=== PATIENT | female | born 1975 | race Caucasian/White ===

== ENCOUNTER 2022-02-21 11:35 | Emergency (ER) | payer BC, SELFPAY ==
[2022-02-21] MEDS ORDERED: HYDROCODONE/APAP 7.5/325 MG TAB ONE (12:30)
--- NOTE | 2022-02-21 13:36 | RAD REPORT ---
EXAM DESCRIPTION: RAD - Lumbar Spine 3 Views - 02/21/2022 1:19 pm CLINICAL HISTORY: PAINafter fall COMPARISON: C Spine Ap/Lat dated 02/21/2022; Elbow Left 3 View dated 02/21/2022 FINDINGS: A three-view lumbar spine examination was performed. Lumbar bodies are normal in height and alignment. No fracture or acute bony process seen. No disc spa ce narrowing. No pars defects identified. SI joints are normal. No significant facet degenerative yesika nge. IMPRESSION: Negative Lumbar Spine examination for acute or significant finding.
--- NOTE | 2022-02-21 13:42 | RAD REPORT ---
EXAM DESCRIPTION: RAD - Elbow Left 3 View - 02/21/2022 1:18 pm CLINICAL HISTORY: Left elbow pain status post trauma FINDINGS: No fracture or dislocation is seen.
--- NOTE | 2022-02-21 13:44 | RAD REPORT ---
EXAM DESCRIPTION: RAD - C Spine Ap/Lat - 02/21/2022 1:19 pm CLINICAL HISTORY: Neck pain FINDINGS: No fracture or dislocation is seen. Mild spondylosis involves mid and distal cervical spine
--- NOTE | 2022-02-21 14:25 | ER ---
Nurse's Notes [facility] Name: Dara Gallego Age: 46 yrs Sex: Female : 1975 Arrival Date: 02/21/2022 Time: 11:38 Bed 9 Private MD: Diagnosis: Other sprain of left elbow Presentation: 02/21 12:16 Chief complaint: Patient states: fell about an hour ago, states was walking and [facility], states landed on back and Left arm and hit back of head. Denies LOC. Coronavirus screen: Vaccine status: Patient reports being unvaccinated. Client denies travel out of the [place] in the last 14 days. Ebola Screen: Patient denies exposure to infectious person. Patient denies travel to an Ebola-affected area in the 21 days before illness onset. Initial Sepsis Screen: Does the patient meet any 2 criteria? No. Patient's initial sepsis screen is negative. Does the patient have a suspected source of infection? No. Patient's initial sepsis screen is negative. Risk Assessment: Do you want to hurt yourself or someone else? Patient reports no desire to harm self or others. Onset of symptoms was February 21, 2022. 12:16 Method Of Arrival: Ambulatory vg1 12:16 Acuity: NEREYDA 3 vg1 14:50 Care prior to arrival: None. Mechanism of Injury: No Mechanism of Injury. Trauma event ld1 details: Injury occurred in the [facility]. Triage Assessment: 12:19 General: Appears uncomfortable, Behavior is calm, cooperative. Pain: Complains of pain vg1 in left arm Pain currently is 8 out of 10 on a pain scale. Musculoskeletal: Reports numbness in left arm. 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 - Social history:: Smoking status: Patient reports the use of cigarette tobacco products, smokes one-half pack cigarettes per day. - Immunization history: Last tetanus immunization: - up to date. Screenin:21 Abuse screen: Denies threats or abuse. Denies injuries from another. Nutritional eh3 screening: No deficits noted. Tuberculosis screening: No symptoms or risk factors identified. Fall Risk None identified. Primary Survey: 14:47 NO uncontrolled hemorrhage observed. A: The client is awake and alert. The airway is ld1 patent. Breathing/Chest: Spontaneous respiratory effort, equal unlabored respirations, breath sounds clear bilaterally, regular pattern, symmetrical chest rise and fall. Circulation: No external hemorrhage present. Regular and strong central pulse, skin warm/dry/normal color. Disability Client is alert. Exposure/Environment: All clothing and personal items were removed. Forensic evidence collection is not deemed to be indicated at this time. Items placed in patient belonging bag. Reassessment Alertness and Airway: Awake and alert. The airway is patent. Breathing: Spontaneous respiratory effort, equal unlabored respirations, breath sounds clear bilaterally, regular pattern with symmetrical chest rise and fall. Circulation: No external hemorrhage noted. Regular and strong central pulse, skin warm/dry/normal color. Disability: Alert. Assessment: 14:19 Reassessment: Patient states symptoms have improved. Pain: Pain currently is 5 out of eh3 10 on a pain scale. Vital Signs: 12:16 BP 139 / 87; Pulse 77; Resp 16; Temp 97.9(O); Pulse Ox 98% on R/A; Weight 99.79 kg; vg1 Height 5 ft. 6 in. (167.64 cm); Pain 8/10; 14:20 BP 134 / 83; Pulse 69; Resp 16; Pulse Ox 96% on R/A; Pain 5/10; eh3 12:16 Body Mass Index 35.51 (99.79 kg, 167.64 cm) vg1 Wyckoff Coma Score: 14:47 Eye Response: spontaneous(4). Verbal Response: oriented(5). Motor Response: obeys ld1 commands(6). Total: 15. Trauma Score (Adult): 14:47 Eye Response: spontaneous(1); Verbal Response: oriented(1); Motor Response: obeys ld1 commands(2); Systolic BP: > 89 mm Hg(4); Respiratory Rate: 10 to 29 per min(4); Wyckoff Score: 15; Trauma Score: 12 ED Course: 11:38 Patient arrived in ED. mr 11:40 Margo Rosa FNP [facility] jh7 11:40 Jaden Ruiz DO is Attending Physician. jh7 12:19 Triage completed. vg1 12:19 Arm band placed on. vg1 13:16 XRAY Elbow LEFT 3 view In Process Unspecified. EDMS 13:16 XRAY C Spine Ap/lat In Process Unspecified. EDMS 13:16 Lumbar Spine (3 Views) XRAY In Process Unspecified. EDMS 14:11 Chantelle Thomas, RN is Primary Nurse. ld1 14:47 Patient has correct armband on for positive identification. Placed in gown. Bed in low ld1 position. Call light in reach. Side rails up X2. Patient maintains SpO2 saturation greater than 95% on room air. 14:47 Patient maintains SpO2 saturation greater than 95% on room air. ld1 14:49 No provider procedures requiring assistance completed. Patient did not have IV access ld1 during this emergency room visit. 14:50 Thermoregulation: warm blanket given to patient. ld1 Administered Medications: 12:25 Drug: [place] (HYDROcodone-acetaminophen) (7.5 mg-325 mg) 1 tabs Route: PO; vg1 14:19 Follow up: Response: No adverse reaction; Marked relief of symptoms eh3 14:39 Drug: Ketorolac 60 mg Route: IM; Site: right deltoid; 3 14:46 Follow up: Response: No adverse reaction eh3 Medication: 14:50 VIS not applicable for this client. ld1 Intake: 14:47 PO: 150ml (Water); Total: 150ml. ld1 Outcome: 14:25 Discharge ordered by . [facility] 14:46 Discharged to home ambulatory. 3 14:46 Condition: stable 14:46 Discharge instructions given to patient, Instructed on discharge instructions, follow up and referral plans. medication usage, Demonstrated understanding of instructions, follow-up care, medications. 14:47 Patient's length of stay was not longer than 2 hours. ld1 14:53 Discharge ordered by . [facility] 14:57 Patient left the ED. ld1 Signatures: Dispatcher [employer] EDCT Lydia Smalls Cathleen Metz RN RN 1 Chantelle Thomas, JASMYN RN ld1 Lizeth Graff eh3 Margo Rosa FNP MANAGER STORE jh7
--- NOTE | 2022-02-21 14:25 | EDPHYS ---
Physician Documentation [facility] Name: Dara Gallego Age: 46 yrs Sex: Female : 1975 Arrival Date: 02/21/2022 Time: 11:38 Bed 9 Private MD: ED Physician Jaden Ruiz HPI: 02/21 12:25 This 46 yrs old Female presents to ER via Ambulatory with complaints of Fall Injury. 7 12:25 Details of fall: The patient fell from an upright position, while standing. Onset: The jh7 symptoms/episode began/occurred acutely. Patient reports that she was carrying groceries and suddenly slipped on a pile of sugar. Denies any head injury but states that she has severe pain in her left elbow, mild neck pain, and lower back pain. Denies LOC. No medical problems.. 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 - Social history:: Smoking status: Patient reports the use of cigarette tobacco products, smokes one-half pack cigarettes per day. - Immunization history: Last tetanus immunization: - up to date. ROS: 12:25 Constitutional: Negative for fever, chills, and weight loss, Eyes: Negative for injury, jh7 pain, redness, and discharge, ENT: Negative for injury, pain, and discharge, Cardiovascular: Negative for chest pain, palpitations, and edema, Respiratory: Negative for shortness of breath, cough, wheezing, and pleuritic chest pain, Abdomen/GI: Negative for abdominal pain, nausea, vomiting, diarrhea, and constipation, Skin: Negative for injury, rash, and discoloration, Neuro: Negative for headache, weakness, numbness, tingling, and seizure. 12:25 Neck: Positive for pain with movement. 12:25 Back: Positive for pain at rest, Negative for decreased range of motion. 12:25 MS/extremity: Positive for injury or acute deformity, decreased range of motion, pain, swelling. 12:25 All other systems are negative. Exam: 12:25 Constitutional: This is a well developed, well nourished patient who is awake, alert, jh7 and in no acute distress. ENT: Nares patent. No nasal discharge, no septal abnormalities noted. Tympanic membranes are normal and external auditory canals are clear. Oropharynx with no redness, swelling, or masses, exudates, or evidence of obstruction, uvula midline. Mucous membranes moist. Cardiovascular: Regular rate and rhythm with a normal S1 and S2. No gallops, murmurs, or rubs. Normal PMI, no JVD. No pulse deficits. Respiratory: Lungs have equal breath sounds bilaterally, clear to auscultation and percussion. No rales, rhonchi or wheezes noted. No increased work of breathing, no retractions or nasal flaring. Abdomen/GI: Soft, non-tender, with normal bowel sounds. No distension or tympany. No guarding or rebound. No evidence of tenderness throughout. Skin: Warm, dry with normal turgor. Normal color with no rashes, no lesions, and no evidence of cellulitis. Neuro: Awake and alert, GCS 15, oriented to person, place, time, and situation. Sensory grossly intact. Normal gait. 12:25 Neck: External neck: is normal, C-spine: appears grossly normal, ROM/movement: pain, that is mild, with flexion. 12:25 Back: pain, that is mild, of the lumbar area, ROM is normal, normal spinal alignment noted. 12:25 Musculoskeletal/extremity: ROM: full passive range of motion, limited active range of motion, limited passive range of motion due to pain, in the left arm. Vital Signs: 12:16 BP 139 / 87; Pulse 77; Resp 16; Temp 97.9(O); Pulse Ox 98% on R/A; Weight 99.79 kg; vg1 Height 5 ft. 6 in. (167.64 cm); Pain 8/10; 14:20 BP 134 / 83; Pulse 69; Resp 16; Pulse Ox 96% on R/A; Pain 5/10; eh3 12:16 Body Mass Index 35.51 (99.79 kg, 167.64 cm) vg1 Stefania Coma Score: 14:47 Eye Response: spontaneous(4). Verbal Response: oriented(5). Motor Response: obeys ld1 commands(6). Total: 15. Trauma Score (Adult): 14:47 Eye Response: spontaneous(1); Verbal Response: oriented(1); Motor Response: obeys ld1 commands(2); Systolic BP: > 89 mm Hg(4); Respiratory Rate: 10 to 29 per min(4); Stefania Score: 15; Trauma Score: 12 MDM: 14:18 Patient medically screened. [facility] 14:30 Differential diagnosis: contusion, fracture, sprain, strain. Data reviewed: vital [facility] signs, nurses notes, radiologic studies, plain films. Data interpreted: Pulse oximetry: is 96 %. Interpretation: normal. Counseling: I had a detailed discussion with the patient and/or guardian regarding: the historical points, exam findings, and any diagnostic results supporting the discharge/admit diagnosis, to return to the emergency department if symptoms worsen or persist or if there are any questions or concerns that arise at home. ED course: Discussed the patient's negative x-ray results. She was placed in a sling for comfort. If her symptoms persist beyond 1 to 2 weeks, Ortho follow-up advised.. 02/21 12:00 Order name: XRAY Elbow LEFT 3 view; Complete Time: 14:20 [facility] 02/21 12:00 Order name: XRAY C Spine Ap/lat; Complete Time: 14:20 [facility] 02/21 12:00 Order name: Lumbar Spine (3 Views) XRAY; Complete Time: 14:20 [facility] 02/21 14:22 Order name: Sling; Complete Time: 14:29 [facility] Administered Medications: 12:25 Drug: [place] (HYDROcodone-acetaminophen) (7.5 mg-325 mg) 1 tabs Route: PO; vg1 14:19 Follow up: Response: No adverse reaction; Marked relief of symptoms eh3 14:39 Drug: Ketorolac 60 mg Route: IM; Site: right deltoid; eh3 14:46 Follow up: Response: No adverse reaction eh3 Disposition: 22:00 Co-signature as Attending Physician, Jaden REAL was immediately available on-site ms3 in the Emergency Department for consultation in the care of the patient. . Disposition Summary: 02/21/22 14:53 Discharge Ordered Location: Home(02/21/22 14:53) [facility] Problem: new(02/21/22 14:53) [facility] Symptoms: have improved(02/21/22 14:53) [facility] Condition: Stable(02/21/22 14:53) [facility] Diagnosis - Other sprain of left elbow(02/21/22 14:53) [facility] Followup: [facility] - With: Private Physician - When: 2 - 3 days - Reason: Recheck today's complaints Discharge Instructions: - Discharge Summary Sheet [facility] - Elbow Sprain [facility] Forms: - Medication Reconciliation Form [facility] - Thank You Letter [facility] - Prescription Opioid Use [facility] Prescriptions: - Tylenol-Codeine #3 300 mg-30 mg Oral - take 1 tablet by ORAL route every 4-8 hours As needed; 12 tablet; Refills: 0, jh7 Product Selection Permitted Signatures: Dispatcher [employer] Cathleen Connolly, RN RN vg1 Jaden Ruiz, DO ms3 Chantelle Thomas RN RN ld1 Lizeth Graff 3 Margo Rosa, UTILITIES EQUIPMENT REPAIRER [facility]ILITIES [facility]QUIPMENT REPA[facility] Cor[facility]: (The following items were deleted from the chart) 14:47 14:25 Home [place] [id number] 14:47 14:25 new [place] [id number] 14:47 14:25 have improved [place] [id number] 14:47 14:25 Stable [place] [id number] 14:47 14:25 Other sprain of left elbow [place] [id number]
[2022-02-21] MEDS ORDERED: KETOROLAC 30 MG/ML INJ ONE (14:38)
[2022-02-21 15:15] VITALS: TEMP 97.9
[2022-02-21 15:17] VITALS: BP 134/83; O2SAT 96
== END 2022-02-21 14:57 | disposition home or self-care (01) ==
LOC: ER 11:35
DX: S53.492A Other sprain of left elbow, initial encounter (principal); M54.2 Cervicalgia; M54.50 Low back pain, unspecified; F17.210 Nicotine dependence, cigarettes, uncomplicated
CPT/HCPCS: 72040; 72100; 96372; 99284